=== PATIENT | male | born 1975 | race Caucasian/White ===

== ENCOUNTER → 2016-12-13 | Outpatient (CLI) | payer OTHER ==
[~2016-12-13] VITALS: Ht 193 cm; Wt 89.4 kg
[~2016-12-13] MED LIST: ADVAIR HFA115 MCG/21 INH; AMITRIPTYLINE H25 M2 PO; CELEBREX 200 M200 MG PO; HYDROCODON-ACE1 EAC5 PO; HYDROCODON-ACE1 EAC7 PO; HYDROCODONE-AP1 EAC6 PO; MEDROLDOSEPACK PO; MELOXICAM15 MG PO; MELOXICAM7.5 MG PO; METHADONE HCL 110 M1 PO; METHADOSE10 MG PO; NEURONTIN 300300 M1 PO; NEXIUM 40 MG CA40 M1 PO; PERCOCET 10-321 EAC1 PO; PERCOCET 10-321 EACH PO; PERCOCET PO; SPIRIVA INH; VENTOLIN HFA INH8 GM IH
--- NOTE | ~2016-12-13 | HPC ---
[facility] [place] [address] PAIN MANAGEMENT CONSULTATION Name: AMILCAR CHÁVEZ Room #: REG NICOLASA MatthewsKristin#: [id number] Admission: 12/13/16 Attend Phys: Sarah Easton MD Discharge: Date of : 77 Report #: [id number] THIS REPORT FOR: //name// CC: FAM physician/PCP Ang Easton DATE OF SERVICE: 12/13/2016 CHIEF COMPLAINT: Pain has started and increased again, the patient received greater than 50% improvement since 08/2016. HISTORY OF PRESENT ILLNESS: The patient is a 40-year-old gentleman who has been seen in the pain clinic because of lumbar radiculopathy. He has been experiencing pain and discomfort for a number of years. He has noted that epidural steroid injections can improve his pain by greater than 50% for many months. He has noted onset of pain and discomfort radiating down into his legs with numbness and weakness, particularly on the right side. He rates his pain and discomfort as an 8/10. Describes it as radiating and shooting. Notes exacerbation of the discomfort with lifting, movements and has a constant level of pain at 8. Pain improves with lying down. PHYSICAL EXAMINATION: Blood pressure 142/94, pulse 86, respiratory rate 16, room air saturation 98%. The patient has pain and discomfort radiating down the lower portion of his back, into the right side to the level of his knee with numbness, weakness and discomfort. This has improved in the past with epidural steroid injections. IMPRESSION: Lumbar radiculopathy involving the right lumbar region as well as pain down into the L5-S1 distribution. RECOMMENDATIONS: We discussed treatment options with the patient. Risks and benefits again of the procedure were discussed. The patient feels that his pain has improved enough doing past injections and would like to proceed with another injection to help decrease his pain and discomfort. He receives greater than 50% pain relief after the injections. RECOMMENDATIONS: We will continue with the patient's methadone 10 mg 1 p.o. b.i.d. as well as Percocet 10/325 one p.o. b.i.d. The patient will also continue Mobic 15 mg 1 p.o. q. day. We will petition his insurance company for the opportunity to provide the patient with some pain relief and decrease his pain and suffering. He will follow up in the future at which time, he will undergo an epidural steroid injection to help with his pain which would help with pain control. [address] [address] PAIN MANAGEMENT CONSULTATION Name: AMILCAR CHÁVEZ Room #: REG CLClifton MatthewsKristin#: [id number] Admission: 12/13/16 Attend Phys: Sarah Easton MD Discharge: Date of : 77 Report #: [id number] We would like to thank you for letting us participate in his care. We hope he continues to improve. <ELECTRONICALLY SIGNED> By: Sarah Easton MD 12/31/16 1018 [id number] [id number] Sarah Eastno MD /corona
[2016-12-13 09:40] VITALS: BP 142/94
== END | disposition home or self-care (01) ==
LOC: PAIN 07:13
DX: M54.16 Radiculopathy, lumbar region (principal); F17.210 Nicotine dependence, cigarettes, uncomplicated

== ENCOUNTER → 2017-03-28 | Outpatient (CLI) | payer OTHER ==
[~2017-03-28] VITALS: Ht 193 cm; Wt 86.2 kg
--- NOTE | ~2017-03-28 | HPC ---
[facility] [place] [address] [place] [address] PAIN MANAGEMENT CONSULTATION Name: AMILCAR CHÁVEZ Room #: REG NICOLASA MatthewsKristin#: [id number] Admission: 03/28/17 Attend Phys: Sarah Easton MD Discharge: Date of : 77 Report #: [id number] THIS REPORT FOR: //name// CC: [facility] physician/PCP Sarah Easton DATE OF SERVICE: 03/28/2017 FOLLOWUP COMPLAINT: Here for another injection "my back has gotten a little worse." FOLLOWUP HISTORY: The patient is a 41-year-old gentleman who has been followed in the pain clinic because of lumbar radiculopathy. He has undergone epidural steroid injections in the past. He has gleaned greater than 50% improvement in his pain. He has noted over the last few weeks that his pain has increased once again. He did get substantial relief after epidural steroid injections in the past and would like to proceed with another. There has been no change in bowel or bladder function. ____ he is taking oxycodone 10 one p.o. b.i.d.; methadone 10 mg b.i.d. and Meloxicam continue to be quite efficacious. He states that he has taken his medications as prescribed. He keeps them in a guarded area. He is aware of the possible side effects of opioid medications, which can cause dependence as well as tolerance. He would like to proceed with the injection and have his medications renewed. PHYSICAL EXAMINATION: GENERAL: The patient is alert. No evidence of over sedation. He appears to be taking medication as prescribed. Complains of pain and discomfort in the lower portion of his back, which radiates down into the level of knee. He is having difficulty sleeping at night because of the pain. He notes weakness and sensory changes down in the affected extremity. Pain is worse when standing as well as with lifting activities. IMPRESSION: Lumbar radiculopathy in the L5-S1 distribution, radiating down into the right lower extremity. RECOMMENDATIONS: We discussed treatment options with the patient. Risks and benefits of the epidural steroid were again discussed. Possible complications were reviewed. The patient elects to proceed. PROCEDURE NOTE: The patient was placed in the prone position. Fluoroscopy was used to identify the L5-S1 area. This area had been sterilely prepped with Betadine and infiltrated with 0.25% bupivacaine. Total of 80 mg Depo-Medrol, 40 mg triamcinolone and 2 mL of 0.25% bupivacaine was injected. A total of 7 seconds fluoroscopy time was used. The patient indicated pain decreased from 7 to 5 at the time of discharge. He will call us if he has any problems with his medications. [address] [address] PAIN MANAGEMENT CONSULTATION Name: AMILCAR CHÁVEZ Room #: REG NICOLASA Calvin#: [id number] Admission: 03/28/17 Attend Phys: Sarah Easton MD Discharge: Date of : 77 Report #: [id number] We would like to thank you for letting us participate in his care. We hope he continues to improve. By: 0829 1156 Sarah Easton MD /nt
--- NOTE | ~2017-03-28 | P ---
[facility] [place] [address] [place] [address] PROCEDURE REPORT Name: AMILCAR CHÁVEZ Room #: REG Clifton Nikunj#: [id number] Admission: 03/28/17 Attend Phys: Sarah Easton MD Discharge: Date of : 77 Report #: [id number] THIS REPORT FOR: //name// CC: [facility] physician/PCP Sarah Easton DATE OF SERVICE: 03/28/2017 PROCEDURE NOTE The patient was placed in the prone position. Fluoroscopy was used to identify the L5-S1 area. This area had been sterilely prepped with Betadine and infiltrated with 0.25% bupivacaine. Total of 80 mg Depo-Medrol, 40 mg triamcinolone and 2 mL of 0.25% bupivacaine was injected. A total of 7 seconds fluoroscopy time was used. The patient indicated pain decreased from 7 to 5 at the time of discharge. He will call us if he has any problems with his medications. We would like to thank you for letting us participate in his care. We hope he continues to improve. By: 0829 1200 Sarah Easton MD /nt
[2017-03-28 13:25] VITALS: BP 137/104
== END ==
LOC: PAIN 09:49
DX: M54.16 Radiculopathy, lumbar region (principal); I10 Essential (primary) hypertension; F17.210 Nicotine dependence, cigarettes, uncomplicated; F32.9 Major depressive disorder, single episode, unspecified

== ENCOUNTER → 2017-07-09 | Outpatient (CLI) | payer OTHER ==
[~2017-07-09] VITALS: Ht 193 cm; Wt 90.3 kg
--- NOTE | ~2017-07-09 | HPC ---
[facility] [address] [address] PAIN MANAGEMENT CONSULTATION Name: AMILCAR CHÁVEZ Room #: REG NICOLASA MotleyKristinVandanaKristin#: [id number] Admission: 07/09/17 Attend Phys: Sarah Easton MD Discharge: Date of : 77 Report #: [id number] THIS REPORT FOR: //name// CC: [facility] physician/PCP Sarah Easton DATE OF SERVICE: 07/09/2017 FOLLOWUP COMPLAINT: "Here for my medication renewal. I have moved and my back is more sore." FOLLOWUP HISTORY: The patient is a 41-year-old gentleman who has been seen in the pain clinic. As you recall, he has recently become a civilian. He was in the . He has had pain in his back with pain, which radiates down into his right leg. He has undergone epidural steroid injections and gleaned benefits from these in the past. He feels at this juncture that his pain has increased. He recently moved and has noticed some increased pain and discomfort as a result of that move. PHYSICAL EXAMINATION: Blood pressure is 131/75, pulse 88, respiratory rate 14, room air saturation is 100, height 6 feet 4 inches, weight 190 pounds, and BMI is 24. The patient has pain and discomfort radiating down into the posterior portion in the L5-S1 distribution on his right leg. IMPRESSION: Lumbar radiculopathy in the right lumbar region as well as on the right L5-S1 distribution today. RECOMMENDATIONS: We discussed treatment options with the patient. Risks and benefits of an epidural steroid injection were again reviewed. Possible complications were discussed. The patient elects to proceed. PROCEDURE NOTE: The patient was placed in the prone position. Fluoroscopy was used to identify the L5-S1 interspace. This area had been sterilely prepped with Betadine and infiltrated with 0.25% bupivacaine. Total of 80 mg Depo-Medrol, 40 mg triamcinolone and 2 mL of 0.25% bupivacaine was injected. The patient tolerated the procedure well. There were no complications. He remained in the pain clinic for an appropriate amount of time. His pain intensity decreased from 7-6. He will follow up in the future as needed. A script for his medications of methadone 1 p.o. b.i.d. and oxycodone 10 mg 1 p.o. b.i.d. have been written. He will continue with Meloxicam 15 mg. By: 1236 1347 Sarah Easton MD /corona
[2017-07-09 08:53] VITALS: BP 131/75
== END | disposition home or self-care (01) ==
LOC: PAIN 07:07
DX: M54.16 Radiculopathy, lumbar region (principal); Z76.0 Encounter for issue of repeat prescription; G89.29 Other chronic pain; F17.210 Nicotine dependence, cigarettes, uncomplicated; Z98.890 Other specified postprocedural states

== ENCOUNTER → 2017-10-24 | Outpatient (CLI) | payer OTHER ==
[~2017-10-24] VITALS: Ht 193 cm; Wt 92.5 kg
--- NOTE | ~2017-10-24 | HPC ---
[facility] [address] [place] [address] PAIN MANAGEMENT CONSULTATION Name: AMILCAR CHÁVEZ Room #: REG NICOLASA MatthewsKristin#: [id number] Admission: 10/24/17 Attend Phys: Sarah Easton MD Discharge: Date of : 77 Report #: [id number] THIS REPORT FOR: //name// CC: [facility] physician/PCP PRIMARY CARE Sarah Easton DATE OF SERVICE: 10/24/2017 FOLLOWUP COMPLIANT: Medications are working pretty well and my pain has come back and it is going down into my left leg. There is some tingling down in my toes. FOLLOWUP HISTORY: The patient is a 41-year-old gentleman who has been followed in the pain clinic because of lumbar radiculopathy. He has undergone epidural steroid injections. He continues to note improvement with these. He finds that his medications are efficacious. He feels that the Meloxicam continues to provide benefit. He would like to undergo an epidural steroid injection and get a renewal of his medications. PHYSICAL EXAMINATION: GENERAL: The patient is alert. No evidence of over sedation. Appears to be taking his medications as prescribed. Complains of pain and discomfort in the lower portion of his back with pain radiating down into the left leg with some tingling in the area of the left toes. IMPRESSION: Lumbar radiculopathy in the L5-S1 distribution, most problematic on the left side today. RECOMMENDATIONS: We will proceed with an epidural steroid injection. A script for his medications has been renewed and provided. We have discussed the use of opioid medications and their shortcomings. They can cause problems with dependence, as well as tolerance may develop. He feels that the medications continue to enable him to engage in activities he would not be able to do without their use. He states that they keeps them in a controlled environment. PROCEDURE NOTE: The patient was placed in the prone position. Fluoroscopy was used to identify the L5-S1 interspace. This area had been sterilely prepped with Betadine and infiltrated with 0.25% bupivacaine. Total of 80 mg Depo-Medrol, 40 mg triamcinolone and 2 mL of 0.25% bupivacaine was injected. The patient tolerated the procedure well. There were no complications. A total [facility] [address] [place] [address] PAIN MANAGEMENT CONSULTATION Name: AMILCAR CHÁVEZ [facility] [id number] Admission: 10/24/17 Attend Phys: Sarah Easton MD Discharge: Date of : 77 Report #: [id number] of 11 seconds fluoroscopy time was used. He will follow up in the future. His pain is rated at 6 at the time of discharge. By: 1625 0508 Sarah Easton MD /MELVINA
[2017-10-24 13:19] VITALS: BP 122/84
== END | disposition home or self-care (01) ==
LOC: PAIN 06:53
DX: M54.16 Radiculopathy, lumbar region (principal); G89.29 Other chronic pain; F17.200 Nicotine dependence, unspecified, uncomplicated; Z79.891 Long term (current) use of opiate analgesic; Z98.890 Other specified postprocedural states

== ENCOUNTER → 2018-02-20 | Outpatient (CLI) | payer OTHER ==
[~2018-02-20] VITALS: Ht 193 cm; Wt 94.8 kg
--- NOTE | ~2018-02-20 | HPC ---
[facility] [address] [place] [address] PAIN MANAGEMENT CONSULTATION Name: AMILCAR CHÁVEZ Room #: REG NICOLASA Nikunj#: [id number] Admission: 02/20/18 Attend Phys: Sarah Easton MD Discharge: Date of : 77 Report #: [id number] THIS REPORT FOR: //name// CC: [facility] physician/PCP Sarah Easton DATE OF SERVICE: 02/20/2018 FOLLOWUP COMPLAINT: Pain and the last injection was beneficial. Did note some increased pain for a few days after the injection. It then decreased to its usual level. The patient was somewhat concerned and that he did have been experiencing pain and discomfort in the low back area. At this juncture, he is wondering whether or not he should seek another MRI. He has had no real change in bowel or bladder function. Overall, things have been going reasonably well. He is in school. He is making A's. He finds that his back continues to be plagued at times. He notes that he gets greater than 50% improvement after the epidural steroid injections and would like to return in the near future for another epidural steroid injection. He finds that his medications are helpful. He is taking his medication as prescribed. He is aware that opioid medications are in the news. He is aware of the possible addiction as well as tolerance that he can develop. He feels that his medications are working reasonably well that enable him to continue to be in school, stay engaged in his daily activities and/or beneficial. He has had no problem with meloxicam, no GI complaints. Overall, his medications and things are going well. He would like to proceed with another epidural steroid injection as soon as his insurance company allows. ALLERGIES: No known drug allergies. CURRENT MEDICATIONS: Percocet 10/325, methadone 10 mg 1 p.o. b.i.d., meloxicam 15 mg p.o. daily, Spiriva inhaler p.r.n., Advair 2 puffs p.r.n., albuterol inhaler p.r.n. inhalation. PAIN CLINIC ASSESSMENT: 1. The patient is not being treated for osteoarthritis or rheumatoid arthritis. 2. Height 6 feet 4 inches, weight 209 pounds, BMI is 25.5. 3. Vital signs: Blood pressure 139/84, pulse 100, respiratory rate 14, room air saturation 98%. 4. Pain intensity 06/02. 5. Fall risk. The patient has not fallen in the last 3 months. 6. Blood thinners: The patient is not on a blood thinner. 7. Hypertension. The patient is being treated for hypertension. 8. Opioid therapy greater than 6 weeks. The patient is on a contract with the Pain Clinic and gets his medications only from 1 provider. 9. Risk assessment tool. 10. Functional [place] [address] PAIN MANAGEMENT CONSULTATION Name: AMILCAR CHÁVEZ Room #: REG CL Nikunj#: [id number] Admission: 02/20/18 Attend Phys: Sarah Easton MD Discharge: Date of : 77 Report #: [id number] 11. Tobacco. The patient admits to smoking tobacco. 12. Alcohol. Denies use of alcohol on a regular basis. PHYSICAL EXAMINATION: GENERAL: The patient is a well-developed, well-nourished white male. Appears his stated age. ORIENTATION: The patient is alert and oriented x 3. AFFECT: The patient's affect is appropriate. HEENT: Normocephalic, atraumatic. Extraocular eye muscles intact. Hearing is within normal limits. The patient is having some dilation of his earlobes in the lower area. NECK: Without adenopathy or JVD. HEART: Regular rate. ABDOMEN: Nontender. MUSCULOSKELETAL: Without significant scoliosis, kyphosis, or lordosis. Upper extremity muscle strength 5/5 for the major muscle groups. Sensation of upper extremities is within normal limits with symmetrical bulk lower extremity. The patient has some pain and discomfort, lower portion of his back with pain that radiates down into the L5-S1 dermatomal distribution, which is rated as a 7/10 today. Does have some discomfort in his legs bilaterally to the level of the knee, right side is more problematic than the left. There is some discomfort down into his left toes as well. With tingling, sharp, stabbing sensation. IMPRESSION: 1. Lumbar radiculopathy, L5-S1 distribution, which is improved with epidural steroid injections by greater than 50% in the past. 2. The patient is engaged in college. He is undergoing studies. He states that his studies are going well and he is making A's. RECOMMENDATION: We will have the patient return to the Pain Clinic in the near future, at which time he will undergo an epidural steroid injection. He was concerned about his pain. He noted some increased pain after the last injection, which lasted for a few days, but resolved. I explained that sometimes we notice some increased pain on occasion. All of his other injections have been quite beneficial with no problems. He feels that overall things are going well. He does not feel like he needs to undergo back surgery. We explained to him that the only real reason to undergo another MRI would be if he had significant change in his pain and if he was willing to undergo a surgery in the future. He declines that option. We will therefore continue on a conservative approach. He will return to the Pain Clinic after he has been precerted at which time he will undergo an epidural steroid injection to help with his pain control. A script for his medications of methadone 10 mg 1 p.o. b.i.d., Percocet 10/325 one p.o. b.i.d. and meloxicam has been written. He has been given a 3-month script for these medications. He will call us if he has [facility] [address] [place] [address] PAIN MANAGEMENT CONSULTATION Name: AMILCAR CHÁVEZ Room #: REG [facility].#: [id number] Admission: 02/20/18 Attend Phys: Sarah Easton MD Discharge: Date of : 77 Report #: [id number] any problems. We would like to thank you for letting us participate in his care. We hope he continues to improve. <ELECTRONICALLY SIGNED> By: Sarah Easton MD 02/25/18 0816 1636 221 Sarah Easton MD /nt
[2018-02-20 10:08] VITALS: BP 139/84
== END ==
LOC: PAIN 07:46
DX: M54.5 Low back pain (principal); M54.16 Radiculopathy, lumbar region

== ENCOUNTER → 2018-05-22 | Outpatient (CLI) | payer OTHER ==
[~2018-05-22] VITALS: Ht 193 cm; Wt 88.6 kg
--- NOTE | ~2018-05-22 | HPC ---
[facility] [place] [address] [place] [address] PAIN MANAGEMENT CONSULTATION Name: AMILCAR CHÁVEZ Room #: REG NICOLASA Nikunj#: [id number] Admission: 05/22/18 Attend Phys: Sarah Easton MD Discharge: Date of : 77 Report #: [id number] THIS REPORT FOR: //name// CC: [facility]AL physician/PCP Sarah Easton DATE OF SERVICE: 05/22/2018 PRIMARY CARE PHYSICIAN FOLLOWUP COMPLAINT: "I am still going to school and things are going pretty well. FOLLOWUP HISTORY: The patient is a 42-year-old gentleman who has been followed in the Pain Clinic because of chronic pain involving his low back. He has a history of chronic back pain. It has been plaguing him since he has been in the . He has undergone epidural steroid injections in the past and finds that this treatment in conjunction with his medications are helpful. He rates his pain as a 7/10 at this juncture. Describes it as stabbing, radiating down into his legs. It involves his low back area and legs bilaterally. Pain is worse on the left with some discomfort down into his toes with tingling and a sharp and stabbing disquieting feeling. ALLERGIES: No known drug allergies. CURRENT MEDICATIONS: Oxycodone 10/325 one p.o. q. 6 hours p.r.n. pain, methadone 10 mg 1 p.o. b.i.d., meloxicam 15 mg, Spiriva hand inhaler, Advair 115 mcg/21 mcg, albuterol inhaler. PAIN CLINIC ASSESSMENT: 1. History of osteoarthritis: The patient is not being treated for osteoarthritis or rheumatoid arthritis. 2. Height 6 feet 4 inches, weight 195 pounds, BMI is 23.8. 3. Vital signs: Blood pressure 129/87, pulse 86, respiratory rate 14, room air saturation 100%. 4. Pain intensity: 7/10. 5. Fall risk: The patient has not fallen in the last 3 months. 6. Blood thinner: The patient is not on a blood thinning medication. 7. History of hypertension: The patient is being treated for hypertension. 8. Opioid therapy greater than 6 weeks: The patient has a contract with the Pain Clinic and gets his medication from one source. 9. Risk assessment tool: Low for use of opioid. 10. Functional assessment tool: 44/70. 11. Recreational drug use: The patient denies use of recreational drugs. 12. Tobacco: The patient denies use of tobacco. 13. Alcohol: The patient [place] [address] PAIN MANAGEMENT CONSULTATION Name: AMILCAR CHÁVEZ Room #: REG [facility]#: [id number] Admission: 05/22/18 Attend Phys: Sarah Easton MD Discharge: Date of : 77 Report #: [id number] PHYSICAL EXAMINATION: GENERAL: The patient is a well-developed, well-nourished white male. He appears his stated age. He is alert and oriented x 3. HEENT: Normocephalic, atraumatic. Extraocular eye muscles intact. Sclerae nonicteric. Hearing is within normal limits. Mucous membranes are moist. NECK: Without adenopathy or JVD. HEART: Regular rate. S1, S2. ABDOMEN: Nontender. LUNGS: Clear to auscultation without rhonchi or rales. MUSCULOSKELETAL: Upper extremity muscle strength is judged to be 5/5 for the major muscle groups in the upper extremity. The patient has musculoskeletal findings of good stature without significant scoliosis, kyphosis or lordosis. Lower extremity muscle strength is judged to be 5/5 for the major muscle groups. The patient has pain and discomfort, which radiates down into his legs bilaterally. He is experiencing some numbness and tingling down into the left leg with numbness down into his feet. SKIN: The patient has a number of tattoos on his arms. He has some dilation of the earlobes. IMPRESSION: 1. Lumbar radiculopathy, L5-S1 distribution, most notable on the left side today. 2. Chronic pain treated with opioid medications as well as the patient is exercising and walking more. He feels that this has been helpful. 3. Asthma. RECOMMENDATIONS: We discussed treatment options with the patient. Risks and benefits again of an epidural steroid injection were discussed. There are possible complications which could include but are not limited to infection, increased muscle soreness, headache, bleeding, worsening of pain, spinal headache that were reviewed. The patient is aware and would like to proceed. PROCEDURE NOTE: The patient was taken to the procedure area. He was then assisted in getting on the table. He was placed in the prone position. Fluoroscopy was used to identify the L5-S1 area using anterior and posterior as well as lateral viewing. The low back area had been sterilely cleansed using a chlorhexidine solution. 0.25% bupivacaine was infiltrated in the midline area. A 17-gauge Tuohy with loss of resistance technique was then used to gain access to the epidural space. There was no CSF, heme or paresthesia. Total of 80 mg Depo-Medrol, 40 mg triamcinolone, and 2 mL of 0.25% bupivacaine was injected. The patient tolerated the procedure well. There were no complications. He remained in the Pain Clinic for an appropriate amount of time. His pain was 5-6 [facility] [address] [place] [address] PAIN MANAGEMENT CONSULTATION Name: AMILCAR CHÁVEZ Room #: REG NICOLASA Calvin#: [id number] Admission: 05/22/18 Attend Phys: Sarah Easton MD Discharge: Date of : 77 Report #: [id number] at the time of discharge. A total of 6 seconds fluoroscopy time was used. He will follow up in the future as needed. By: 1632 0430 Sarah Easton MD /nt
[2018-05-22 08:42] VITALS: BP 129/87
== END | disposition home or self-care (01) ==
LOC: PAIN 07:05
DX: M54.16 Radiculopathy, lumbar region (principal); G89.29 Other chronic pain; I10 Essential (primary) hypertension; F17.210 Nicotine dependence, cigarettes, uncomplicated; J45.909 Unspecified asthma, uncomplicated; Z79.899 Other long term (current) drug therapy; Z79.891 Long term (current) use of opiate analgesic